=== PATIENT | male | born 1960 | race African-American/Black ===

== ENCOUNTER 2024-09-14 13:27 | Emergency (ER) | payer OTHER ==
[~2024-09-14] VITALS: Ht 185.4 cm; Wt 95.3 kg
[2024-09-14 13:53] VITALS: TEMP 98.5
[2024-09-14] MEDS ORDERED: HYDROCODONE/APAP 7.5MG-325MG 1 EA TAB ONE (14:14)
[2024-09-14] MEDS ORDERED: KETOROLAC TROMETHAMINE 30 MG/ML VIAL ONE (14:15)
[2024-09-14] MEDS: HYDROCODONE/APAP 7.5MG-325MG 1 EA TAB PO ONE (14:24)
[2024-09-14] MEDS: KETOROLAC TROMETHAMINE 30 MG/ML VIAL IM STA (14:24)
[2024-09-14] MEDS: ONDANSETRON HCL 4 MG ORAL DISINTEGRATING TAB PO ONE (14:24)
[2024-09-14 15:48] VITALS: PULSE 87; RESP 17
[2024-09-14] MEDS: DEXAMETHASONE SOD PHOS 10 MG/1 ML VIAL IM ONE (17:01)
[2024-09-14] MEDS: DIAZEPAM 2 MG TAB PO ONE (17:01)
[2024-09-14 17:19] VITALS: BP 124/71; PULSE 84; RESP 17; TEMP 97.8; O2SAT 99
== END 2024-09-14 17:20 | disposition home or self-care (01) ==
LOC: ER 14:02
DX: M54.50 Low back pain, unspecified (principal); N18.2 Chronic kidney disease, stage 2 (mild); G47.00 Insomnia, unspecified; Z85.79 Personal history of other malignant neoplasms of lymphoid, hematopoietic and related tissues
CPT/HCPCS: 72131; 99283; J1100; J1885; Q0162